=== PATIENT | male | born 1960 | race Caucasian/White ===

== ENCOUNTER → 2017-11-04 | Outpatient (CLI) | payer BC ==
[2017-11-04 16:33] LABS: CKMB 2.5 ng/ml (0.5-3.6); LDH 213 U/L (87-241)
[2017-11-04 16:34] LABS: TROPONIN I < 0.015 ng/ml (<0.045)
== END | disposition home or self-care (01) ==
LOC: LAB 16:01
PROVIDERS: Family Medicine
DX: R23.3 Spontaneous ecchymoses (principal); S16.1XXA Strain of muscle, fascia and tendon at neck level, initial encounter; X58.XXXA Exposure to other specified factors, initial encounter; Y93.89 Activity, other specified; Y92.89 Other specified places as the place of occurrence of the external cause; Y99.8 Other external cause status

== ENCOUNTER → 2020-08-30 | Outpatient (CLI) | payer BC | END | disposition home or self-care (01) | LOC: COVID19 09:48 | PROVIDERS: ATTEND Family Medicine | DX: U07.1 COVID-19 (principal) ==

== ENCOUNTER 2022-07-20 17:00 | Emergency (ER) | payer BC ==
[2022-07-20] MEDS ORDERED: VALSARTAN-HCTZ1 EAC3 PO (17:10)
[2022-07-20] MEDS ORDERED: ROSUVASTATIN CAL5 MG PO (17:10)
[2022-07-20 17:33] LABS: BASO % 0.5 % (0.0-1.0); EOS # 0.1 10*3/uL (0.0-0.4); EOS % 0.9 % (1.0-4.0); HEMATOCRIT 38.8 % (42.0-52.0); LYMPH # 1.2 10*3/uL (1.3-4.4); LYMPH % 14.8 % (27.0-41.0); MEAN CORPUSCULAR HGB 27.1 pg (27.0-31.0); MEAN CORPUSCULAR HGB CONC 32.2 g/dl (33.0-37.0); MEAN PLATELET VOLUME 9.3 fl (9.6-12.3); MONO # 0.8 10*3/uL (0.1-1.0); MONO % 10.8 % (3.0-9.0); NEUT # 5.6 10*3/uL (2.3-7.9); NEUT % 72.5 % (47.0-73.0); PLATELET COUNT AUTOMATED 357 10*3/uL (130-400); RED BLOOD COUNT 4.62 10*6/uL (4.50-5.90); RED CELL DISTRI WIDTH 19.6 % (0-14.5); WHITE BLOOD COUNT 7.8 10*3/uL (4.8-10.8)
[2022-07-20 17:48] LABS: ALKALINE PHOSPHATASE 470 U/L (46-116); BUN 21 mg/dl (9-23); CHLORIDE 98 mmol/L (98-107); CREATININE 0.74 mg/dL (0.70-1.30); POTASSIUM 3.4 mmol/L (3.4-5.1); SGPT/ALT 38 U/L (10-49); SODIUM 134 mmol/L (136-145)
== END 2022-07-20 17:59 | disposition home or self-care (01) ==
LOC: ED 17:00
PROVIDERS: Student in an Organized Health Care Education/Training Program
DX: E11.649 Type 2 diabetes mellitus with hypoglycemia without coma (principal)

== ENCOUNTER → 2023-02-22 | Outpatient (CLI) | payer BC ==
[~2023-02-22] MED LIST: ROSUVASTATIN CAL5 MG PO; VALSARTAN-HCTZ1 EAC3 PO
== END | disposition home or self-care (01) ==
LOC: WOUNDCARE 00:54
PROVIDERS: ATTEND Nurse Practitioner Family
DX: L03.115 Cellulitis of right lower limb (principal); I10 Essential (primary) hypertension; E78.49 Other hyperlipidemia; Z86.718 Personal history of other venous thrombosis and embolism; Z89.512 Acquired absence of left leg below knee; Z79.4 Long term (current) use of insulin

== ENCOUNTER 2024-05-13 07:42 | Emergency (ER) | payer BC ==
[~2024-05-13] VITALS: Ht 187.9 cm; Wt 83.9 kg
[2024-05-13] MEDS ORDERED: FUROSEMIDE40 MG PO (07:55)
[2024-05-13] MEDS ORDERED: GABAPENTIN100 M2 PO (07:56)
[2024-05-13] MEDS ORDERED: ELIQUIS2.5 M1 PO (07:56)
[2024-05-13] MEDS ORDERED: VITAMIN C500 M4 PO (07:57)
[2024-05-13] MEDS ORDERED: SODIUM CHLORI1000 M5 PO (07:57)
[2024-05-13] MEDS ORDERED: Tdap Vaccine 0.5 ML SYR (Adult Vaccine) IM ONE (08:20)
[2024-05-13] MEDS ORDERED: CEPHALEXIN500 M1 PO (09:42)
== END 2024-05-13 10:12 | disposition home or self-care (01) ==
LOC: ED 07:42
DX: S81.819A Laceration without foreign body, unspecified lower leg, initial encounter (principal); S09.8XXA Other specified injuries of head, initial encounter; W07.XXXA Fall from chair, initial encounter; Y93.89 Activity, other specified; Y92.89 Other specified places as the place of occurrence of the external cause; Y99.8 Other external cause status

== ENCOUNTER 2024-05-20 13:33 | Inpatient (IN) | payer BC, MEDICARE ==
[~2024-05-20] VITALS: Ht 182.8 cm; Wt 104.9 kg
[2024-05-20] VITALS (12 sets, daily range): BP systolic 76–137; BP diastolic 30–108
[~2024-05-20 13:33] MED LIST changes: +CEPHALEXIN500 M1 PO; +ELIQUIS2.5 M1 PO; +FUROSEMIDE40 MG PO; +GABAPENTIN100 M2 PO; +SODIUM CHLORI1000 M5 PO; +VITAMIN C500 M4 PO
[2024-05-20 14:57] LABS: HEMATOCRIT 21.2 % (42.0-52.0); MANUAL DIFF REFLEX YES; MEAN CELL VOLUME 85.5 fl (80.0-94.0); MEAN CORPUSCULAR HGB 29.8 pg (27.0-31.0); MEAN CORPUSCULAR HGB CONC 34.9 g/dl (33.0-37.0); MEAN PLATELET VOLUME 10.3 fl (9.6-12.3); PLATELET COUNT AUTOMATED 310 10*3/uL (130-400); RED BLOOD COUNT 2.48 10*6/uL (4.50-5.90); RED CELL DISTRI WIDTH 21.5 % (0-14.5); WHITE BLOOD COUNT 18.4 10*3/uL (4.8-10.8)
[2024-05-20 15:14] LABS: ALKALINE PHOSPHATASE 330 U/L (46-116); BUN 23 mg/dl (9-23); CHLORIDE 77 mmol/L (98-107); POTASSIUM 3.4 mmol/L (3.4-5.1); SGPT/ALT 60 U/L (5-49); TOTAL PROTEIN 3.7 gm/dL (6.0-8.0)
[2024-05-20 15:31] LABS: PLATELET SUFFICIENCY NORMAL (NORMAL); TOTAL CELLS COUNTED 100 #CELLS
[2024-05-20 15:32] LABS: TARGET CELLS FEW
[2024-05-20] MEDS ORDERED: Thiamine 200 MG/2 ML VIAL IV ONE (16:10)
[2024-05-20] MEDS ORDERED: MORPHINE Sulfate 2 MG/ML SYR IV ONE (16:10)
[2024-05-20] MEDS ORDERED: Lactated Ringer's Solution 1,000 ML IV SCH ×5 (17:05→22:30)
[2024-05-20] MEDS ORDERED: Vancomycin Hydrochloride 1,000 MG in SODIUM CHLORIDE 0.9% 250 ML IV ONE (17:15)
[2024-05-20] MEDS ORDERED: CEFEPIME HYDROCHLORIDE IV ONE (17:15)
[2024-05-20] MEDS ORDERED: Vancomycin Hydrochloride 250 ML IV ONE (17:45)
[2024-05-20] MEDS ORDERED: LORazepam 1 MG TAB PO SCH (18:00)
[2024-05-20] MEDS ORDERED: Ondansetron Hydrochloride 4 MG/2 ML VIAL IV PRN (18:05)
[2024-05-20] MEDS ORDERED: Water, Sterile 10 ML VIAL IV PRN (18:10)
[2024-05-20] MEDS ORDERED: LORazepam 2 MG/ML VIAL IV PRN (18:10)
[2024-05-20] MEDS ORDERED: Vancomycin Hydrochloride 1,000 MG in SODIUM CHLORIDE 0.9% 250 ML IV SCH (18:30)
[2024-05-20] MEDS ORDERED: Menthol/Zinc Oxide 4 GM THIN T SCH (18:40)
[2024-05-20] MEDS ORDERED: DEXTROSE 10 % IN WATER 250 ML IV PRN (18:45)
[2024-05-20] MEDS ORDERED: MAGNESIUM SULFATE 100 ML IV ONE (18:50)
[2024-05-20] MEDS ORDERED: Piperacillin Sodium/Tazobact 50 ML IV SCH (19:00)
[2024-05-20] MEDS ORDERED: POTASSIUM CL/0.9% SODIUM CL 1,000 ML IV SCH (19:15)
[2024-05-20] MEDS ORDERED: NOREPINEPHRINE BITARTRATE/D5W 250 ML IV SCH (21:20)
[2024-05-20] MEDS ORDERED: APIXABAN 5 MG TAB PO SCH (22:00)
[2024-05-20] MEDS ORDERED: NYSTATIN 15 GM BOT T SCH (22:00)
[2024-05-20] MEDS ORDERED: INSULIN LISPRO 1 UNIT/0.01 ML SQ SCH (22:00)
[2024-05-20] MEDS ORDERED: HEPARIN SODIUM 5,000 UNIT/ML VIAL SC SCH (22:00)
[2024-05-20] MEDS ORDERED: TAMSULOSIN HCL0.4 MG PO (22:02)
[2024-05-20 22:25] LABS: POTASSIUM 3.5 mmol/L (3.4-5.1)
[2024-05-20] MEDS ORDERED: SODIUM CHLORIDE 0.9% 1,000 ML IV SCH (22:35)
[2024-05-21] VITALS (97 sets, daily range): BP systolic 82–126; BP diastolic 30–67
[2024-05-21 00:18] LABS: BILIRUBIN 1+ (Negative); BLOOD Negative (Negative); CLARITY Cloudy (Clear); COLOR Dark Yellow (Yellow); GLUCOSE Negative (Negative); KETONE Negative (Negative); LEUKO ESTERASE Trace (Negative); NITRITE Negative (Negative); SPECIFIC GRAVITY 1.015 (1.001-1.030)
[2024-05-21 01:11] LABS: BACTERIA TRACE; WBC 16-20 wbc/hpf (0-5)
[2024-05-21 02:25] LABS: POTASSIUM 3.3 mmol/L (3.4-5.1)
[2024-05-21] MEDS ORDERED: POTASSIUM CHLORIDE 20 MEQ TAB PO ONE (02:45)
[2024-05-21] MEDS ORDERED: Vancomycin Hydrochloride 1,000 MG in SODIUM CHLORIDE 0.9% 250 ML IV SCH (06:00)
[2024-05-21 06:36] LABS: BASO % 0.1 % (0.0-1.0); EOS % 0.2 % (1.0-4.0); LYMPH # 1.1 10*3/uL (1.3-4.4); LYMPH % 6.9 % (27.0-41.0); MEAN CELL VOLUME 84.7 fl (80.0-94.0); MEAN CORPUSCULAR HGB 29.8 pg (27.0-31.0); MEAN CORPUSCULAR HGB CONC 35.2 g/dl (33.0-37.0); MEAN PLATELET VOLUME 10.7 fl (9.6-12.3); MONO # 0.8 10*3/uL (0.1-1.0); MONO % 5.1 % (3.0-9.0); NEUT # 14.3 10*3/uL (2.3-7.9); NEUT % 87.3 % (47.0-73.0); NUCLEATED RED BLOOD CELL 0.1 % (0.0-0.0); PLATELET COUNT AUTOMATED 300 10*3/uL (130-400); RED BLOOD COUNT 2.35 10*6/uL (4.50-5.90); RED CELL DISTRI WIDTH 22.6 % (0-14.5); WHITE BLOOD COUNT 16.4 10*3/uL (4.8-10.8)
[2024-05-21 06:39] LABS: HEMATOCRIT 19.9 % (42.0-52.0)
[2024-05-21 07:02] LABS: POTASSIUM 3.2 mmol/L (3.4-5.1); TOTAL PROTEIN 3.5 gm/dL (6.0-8.0)
[2024-05-21] MEDS ORDERED: Gelatin Sponge 1 EACH SPON T ONE (09:40)
[2024-05-21] MEDS ORDERED: FOLIC ACID 0.4 MG TAB PO SCH (10:00)
[2024-05-21] MEDS ORDERED: Menthol/Zinc Oxide 4 GM THIN T SCH (10:00)
[2024-05-21] MEDS ORDERED: FOLIC ACID 50 MG/10 ML VIAL IV SCH (10:00)
[2024-05-21] MEDS ORDERED: Thiamine 100 MG TAB PO SCH (10:00)
[2024-05-21] MEDS ORDERED: MULTIVITAMIN 1 TAB TAB PO SCH (10:00)
[2024-05-21 10:09] LABS: POTASSIUM 3.5 mmol/L (3.4-5.1)
[2024-05-21] MEDS ORDERED: ALGINATE DRESSING/CME-CELL 4X4 1 EACH BANDAGE T ONE (10:12)
[2024-05-21] MEDS ORDERED: SODIUM CHLORIDE 0.9% 500 ML IV ONE (11:57)
[2024-05-21] MEDS ORDERED: SODIUM CHLORIDE 0.9% IV SCH (12:00)
[2024-05-21] MEDS ORDERED: FOLIC ACID IV SCH (12:00)
[2024-05-21] MEDS ORDERED: SODIUM CHLORIDE 0.9% 1,000 ML IV ONE (12:45)
[2024-05-21] MEDS ORDERED: Thiamine 200 MG/2 ML VIAL IV SCH (14:00)
[2024-05-21 14:25] LABS: POTASSIUM 3.4 mmol/L (3.4-5.1)
[2024-05-21] MEDS ORDERED: HEEL PROTECTOR DEVICE ONE (18:24)
[2024-05-21 18:35] LABS: POTASSIUM 3.5 mmol/L (3.4-5.1)
[2024-05-21] MEDS ORDERED: LORazepam 1 MG TAB PO SCH (20:00)
[2024-05-21 22:26] LABS: BASO % 0.1 % (0.0-1.0); EOS # 0.1 10*3/uL (0.0-0.4); LYMPH % 6.9 % (27.0-41.0); MEAN CELL VOLUME 85.3 fl (80.0-94.0); MEAN CORPUSCULAR HGB 29.1 pg (27.0-31.0); MEAN CORPUSCULAR HGB CONC 34.1 g/dl (33.0-37.0); MEAN PLATELET VOLUME 10.2 fl (9.6-12.3); MONO # 0.9 10*3/uL (0.1-1.0); MONO % 6.3 % (3.0-9.0); NEUT # 12.5 10*3/uL (2.3-7.9); NEUT % 85.3 % (47.0-73.0); NUCLEATED RED BLOOD CELL 0.2 % (0.0-0.0); PLATELET COUNT AUTOMATED 286 10*3/uL (130-400); RED BLOOD COUNT 2.58 10*6/uL (4.50-5.90); RED CELL DISTRI WIDTH 22.9 % (0-14.5); WHITE BLOOD COUNT 14.6 10*3/uL (4.8-10.8)
[2024-05-21 22:59] LABS: POTASSIUM 3.5 mmol/L (3.4-5.1); TOTAL PROTEIN 3.3 gm/dL (6.0-8.0)
[2024-05-22] VITALS (72 sets, daily range): BP systolic 75–113; BP diastolic 27–67
[2024-05-22 05:07] LABS: HBSAG Negative (Negative); HEP B CORE AB, IGM Negative (Negative); HEPATITIS C ANTIBODY Non Reactive (Non Reactive)
[2024-05-22 06:26] LABS: BASO % 0.1 % (0.0-1.0); EOS # 0.1 10*3/uL (0.0-0.4); EOS % 0.9 % (1.0-4.0); HEMATOCRIT 21.7 % (42.0-52.0); LYMPH # 0.7 10*3/uL (1.3-4.4); LYMPH % 5.4 % (27.0-41.0); MEAN CELL VOLUME 86.1 fl (80.0-94.0); MEAN CORPUSCULAR HGB CONC 33.6 g/dl (33.0-37.0); MEAN PLATELET VOLUME 10.9 fl (9.6-12.3); MONO # 0.7 10*3/uL (0.1-1.0); MONO % 5.4 % (3.0-9.0); NEUT # 11.6 10*3/uL (2.3-7.9); NEUT % 87.4 % (47.0-73.0); PLATELET COUNT AUTOMATED 291 10*3/uL (130-400); RED BLOOD COUNT 2.52 10*6/uL (4.50-5.90); RED CELL DISTRI WIDTH 23.6 % (0-14.5); WHITE BLOOD COUNT 13.2 10*3/uL (4.8-10.8)
[2024-05-22 08:10] LABS: POTASSIUM 3.4 mmol/L (3.4-5.1); TOTAL PROTEIN 3.2 gm/dL (6.0-8.0)
[2024-05-22] MEDS ORDERED: FOLIC ACID 50 MG/10 ML VIAL IV SCH (10:00)
[2024-05-22] MEDS ORDERED: LACTULOSE 20 GM/30 ML UDC PO SCH (10:00)
[2024-05-22] MEDS ORDERED: VANCOMYCIN/WATER FOR INJ (PEG) 250 ML IV SCH (10:00)
[2024-05-22] MEDS ORDERED: ALBUMIN 25% 100 ML IV ONE (12:05)
[2024-05-22] MEDS ORDERED: POTASSIUM CHLORIDE 20 MEQ in Lactated Ringer's Solution 1,000 ML IV SCH (13:00)
[2024-05-22 16:14] LABS: BILIRUBIN 2+ (Negative); BLOOD 2+ (Negative); CLARITY Cloudy (Clear); COLOR Dark Yellow (Yellow); GLUCOSE Negative (Negative); KETONE Trace (Negative); LEUKO ESTERASE 1+ (Negative); NITRITE Negative (Negative); SPECIFIC GRAVITY 1.025 (1.001-1.030)
[2024-05-22 16:16] LABS: URINE CREATININE RANDOM 104.37 mg/dL
[2024-05-22 16:17] LABS: URINE CHLORIDE, RANDOM < 20 mmol/L
[2024-05-22 16:21] LABS: BACTERIA 1+; RBC 21-30 rbc/hpf (0-2)
[2024-05-22 16:25] LABS: CALCIUM OXALATE CRYSTALS Trace; HYALINE CAST 0-2
[2024-05-22] MEDS ORDERED: ATORVASTATIN CALCIUM 20 MG TAB PO SCH (22:00)
[2024-05-22] MEDS ORDERED: LORazepam 1 MG TAB PO PRN (22:00)
[2024-05-22] MEDS ORDERED: APIXABAN 5 MG TAB PO SCH (22:00)
[2024-05-22] MEDS ORDERED: GABAPENTIN 100 MG CAP PO SCH (22:00)
[2024-05-23] VITALS (46 sets, daily range): BP systolic 76–149; BP diastolic 25–84
[2024-05-23 05:16] LABS: POTASSIUM 3.7 mmol/L (3.4-5.1); TOTAL PROTEIN 3.5 gm/dL (6.0-8.0)
[2024-05-23] MEDS ORDERED: Protector, Heel/Elbow (PAIR) DEVICE ONE (06:04)
[2024-05-23] MEDS ORDERED: HEEL PROTECTOR DEVICE ONE (06:04)
[2024-05-23 06:06] LABS: BASO % 0.1 % (0.0-1.0); EOS # 0.2 10*3/uL (0.0-0.4); EOS % 1.3 % (1.0-4.0); HEMATOCRIT 21.9 % (42.0-52.0); LYMPH # 0.8 10*3/uL (1.3-4.4); LYMPH % 4.9 % (27.0-41.0); MEAN CORPUSCULAR HGB 29.3 pg (27.0-31.0); MEAN CORPUSCULAR HGB CONC 32.4 g/dl (33.0-37.0); MEAN PLATELET VOLUME 10.2 fl (9.6-12.3); NEUT # 14.8 10*3/uL (2.3-7.9); NEUT % 86.6 % (47.0-73.0); NUCLEATED RED BLOOD CELL 0.1 % (0.0-0.0); PLATELET COUNT AUTOMATED 295 10*3/uL (130-400); RED BLOOD COUNT 2.42 10*6/uL (4.50-5.90); WHITE BLOOD COUNT 17.1 10*3/uL (4.8-10.8)
[2024-05-23 06:44] LABS: MEAN CELL VOLUME 90.5 fl (80.0-94.0)
[2024-05-23] MEDS ORDERED: POTASSIUM CHLORIDE 20 MEQ in Lactated Ringer's Solution 1,000 ML IV SCH (08:00)
[2024-05-23] MEDS ORDERED: Tamsulosin Hydrochloride 0.4 MG CAP PO SCH (10:00)
[2024-05-24] VITALS (34 sets, daily range): BP systolic 89–117; BP diastolic 44–61
[2024-05-24] MEDS ORDERED: SODIUM CHLORIDE 0.9% 500 ML IV ONE (01:46)
[2024-05-24 05:14] LABS: POTASSIUM 3.2 mmol/L (3.4-5.1); TOTAL PROTEIN 3.5 gm/dL (6.0-8.0)
[2024-05-24 06:03] LABS: BASO % 0.1 % (0.0-1.0); EOS # 0.2 10*3/uL (0.0-0.4); EOS % 1.7 % (1.0-4.0); HEMATOCRIT 23.9 % (42.0-52.0); LYMPH # 0.8 10*3/uL (1.3-4.4); LYMPH % 5.3 % (27.0-41.0); MEAN CELL VOLUME 89.5 fl (80.0-94.0); MEAN CORPUSCULAR HGB 28.8 pg (27.0-31.0); MEAN CORPUSCULAR HGB CONC 32.2 g/dl (33.0-37.0); MEAN PLATELET VOLUME 9.9 fl (9.6-12.3); MONO # 1.4 10*3/uL (0.1-1.0); NEUT # 11.6 10*3/uL (2.3-7.9); NEUT % 81.6 % (47.0-73.0); PLATELET COUNT AUTOMATED 239 10*3/uL (130-400); RED BLOOD COUNT 2.67 10*6/uL (4.50-5.90); RED CELL DISTRI WIDTH 21.5 % (0-14.5); WHITE BLOOD COUNT 14.3 10*3/uL (4.8-10.8)
[2024-05-24] MEDS ORDERED: VANCOMYCIN/WATER FOR INJ (PEG) 300 ML IV SCH (16:00)
[2024-05-24 16:54] LABS: BASO % 0.1 % (0.0-1.0); EOS # 0.3 10*3/uL (0.0-0.4); EOS % 2.9 % (1.0-4.0); HEMATOCRIT 22.7 % (42.0-52.0); LYMPH # 0.7 10*3/uL (1.3-4.4); LYMPH % 5.9 % (27.0-41.0); MEAN CELL VOLUME 89.7 fl (80.0-94.0); MEAN CORPUSCULAR HGB CONC 33.5 g/dl (33.0-37.0); MEAN PLATELET VOLUME 9.9 fl (9.6-12.3); MONO # 1.1 10*3/uL (0.1-1.0); MONO % 9.1 % (3.0-9.0); NEUT # 9.2 10*3/uL (2.3-7.9); PLATELET COUNT AUTOMATED 209 10*3/uL (130-400); RED BLOOD COUNT 2.53 10*6/uL (4.50-5.90); RED CELL DISTRI WIDTH 21.3 % (0-14.5); WHITE BLOOD COUNT 11.6 10*3/uL (4.8-10.8)
[2024-05-24] MEDS ORDERED: POTASSIUM CHLORIDE IV ONE (18:00)
[2024-05-24] MEDS ORDERED: LACTATED RINGER S IV ONE (18:00)
[2024-05-25] VITALS: BP 115/64
[2024-05-25] MEDS ORDERED: LACTATED RINGER S IV ONE (05:00)
[2024-05-25] MEDS ORDERED: POTASSIUM CHLORIDE IV ONE (05:00)
[2024-05-25 06:11] LABS: HEMATOCRIT 22.6 % (42.0-52.0); MEAN CELL VOLUME 88.3 fl (80.0-94.0); MEAN CORPUSCULAR HGB 30.1 pg (27.0-31.0); MEAN CORPUSCULAR HGB CONC 34.1 g/dl (33.0-37.0); MEAN PLATELET VOLUME 10.3 fl (9.6-12.3); PLATELET COUNT AUTOMATED 239 10*3/uL (130-400); RED BLOOD COUNT 2.56 10*6/uL (4.50-5.90); RED CELL DISTRI WIDTH 21.9 % (0-14.5); WHITE BLOOD COUNT 12.9 10*3/uL (4.8-10.8)
[2024-05-25 06:15] LABS: MANUAL DIFF REFLEX YES
[2024-05-25 06:48] LABS: TOTAL CELLS COUNTED 100 #CELLS
[2024-05-25 06:49] LABS: BURR CELLS FEW; OVALOCYTES FEW; PLATELET SUFFICIENCY NORMAL (NORMAL); POLYCHROMASIA SLIGHT; POTASSIUM 3.1 mmol/L (3.4-5.1); TARGET CELLS FEW; TOTAL PROTEIN 3.7 gm/dL (6.0-8.0); TOXIC GRANULATION SLIGHT
[2024-05-25 08:00] VITALS: BP 101/61
[2024-05-25] MEDS ORDERED: SINCALIDE 5 MCG VIAL IV SCH (08:15)
[2024-05-25] MEDS ORDERED: Technetium Tc 99M Mebrofenin 1 KIT KIT IV SCH (08:15)
[2024-05-25] MEDS ORDERED: LACTULOSE 20 GM/30 ML UDC PO SCH (10:00)
[2024-05-25] MEDS ORDERED: SODIUM CHLORIDE PO SCH (10:00)
[2024-05-25] MEDS ORDERED: FOLIC ACID 0.4 MG TAB PO SCH (10:09)
[2024-05-25 12:00] VITALS: BP 98/51
[2024-05-25] MEDS ORDERED: POTASSIUM CHLORIDE 40 MEQ in Lactated Ringer's Solution 1,000 ML IV SCH (13:25)
[2024-05-25 16:00] VITALS: BP 91/47
[2024-05-25 22:00] VITALS: BP 105/60
[2024-05-26] VITALS: BP 100/63
[2024-05-26 05:43] LABS: POTASSIUM 3.7 mmol/L (3.4-5.1)
[2024-05-26 06:00] VITALS: BP 107/47
[2024-05-26 06:15] LABS: MEAN CELL VOLUME 90.3 fl (80.0-94.0); MEAN CORPUSCULAR HGB 30.3 pg (27.0-31.0); MEAN CORPUSCULAR HGB CONC 33.6 g/dl (33.0-37.0); MEAN PLATELET VOLUME 10.6 fl (9.6-12.3); NUCLEATED RED BLOOD CELL 0.2 % (0.0-0.0); PLATELET COUNT AUTOMATED 276 10*3/uL (130-400); RED BLOOD COUNT 2.77 10*6/uL (4.50-5.90); RED CELL DISTRI WIDTH 22.5 % (0-14.5); WHITE BLOOD COUNT 10.6 10*3/uL (4.8-10.8)
[2024-05-26 06:17] LABS: MANUAL DIFF REFLEX YES
[2024-05-26 07:03] LABS: ATYPICAL LYMPHS 1 % (0-0); OVALOCYTES FEW; POLYCHROMASIA SLIGHT; SCHISTOCYTES FEW; TARGET CELLS FEW; TOTAL CELLS COUNTED 100 #CELLS; TOXIC GRANULATION SLIGHT
[2024-05-26 07:04] LABS: BURR CELLS FEW; PLATELET SUFFICIENCY NORMAL (NORMAL)
[2024-05-26 07:58] LABS: POTASSIUM 3.5 mmol/L (3.4-5.1)
[2024-05-26 08:00] VITALS: BP 95/53
[2024-05-26] MEDS ORDERED: LACTULOSE 20 GM/30 ML UDC PO SCH (10:00)
[2024-05-26 11:54] VITALS: BP 92/48
[2024-05-26] MEDS ORDERED: ALGINATE DRESSING/CME-CELL 4X4 1 EACH BANDAGE T ONE ×2 (13:28→13:29)
[2024-05-26] MEDS ORDERED: FOAM BANDAGE 5X5 T ONE ×2 (13:30→18:15)
[2024-05-26] MEDS ORDERED: FOAM BANDAGE HEEL T ONE (13:30)
[2024-05-26 16:00] VITALS: BP 96/55
[2024-05-26] MEDS ORDERED: Insulin Glargine, Recombinan 1 UNIT/0.01 ML SC SCH (22:00)
== END 2024-05-26 18:45 | disposition short-term general hospital (02) | DRG 871 ==
LOC: ED 13:33 → ICCU 17:57 → EDHOLD 17:57 → ICCU 19:05
PROVIDERS: Emergency Medicine; Internal Medicine; Internal Medicine Nephrology; Student in an Organized Health Care Education/Training Program; ADMIT Family Medicine; ATTEND Family Medicine
PROC: 02HV33Z Insertion of Infusion Device into Superior Vena Cava, Percutaneous Approach (ICD-10-PCS; principal; 2024-05-20)
PROC: B548ZZA Ultrasonography of Superior Vena Cava, Guidance (ICD-10-PCS; 2024-05-20)
PROC: 30233N1 Transfusion of Nonautologous Red Blood Cells into Peripheral Vein, Percutaneous Approach (ICD-10-PCS; 2024-05-21)
DX: A41.9 Sepsis, unspecified organism (principal); E43 Unspecified severe protein-calorie malnutrition; J18.9 Pneumonia, unspecified organism; N17.0 Acute kidney failure with tubular necrosis; R65.21 Severe sepsis with septic shock; E87.1 Hypo-osmolality and hyponatremia; F33.9 Major depressive disorder, recurrent, unspecified; J21.0 Acute bronchiolitis due to respiratory syncytial virus; L03.114 Cellulitis of left upper limb; L03.113 Cellulitis of right upper limb; E83.42 Hypomagnesemia; E86.0 Dehydration; E87.8 Other disorders of electrolyte and fluid balance, not elsewhere classified; R74.01 Elevation of levels of liver transaminase levels; R79.82 Elevated C-reactive protein (CRP); D64.9 Anemia, unspecified; Z68.23 Body mass index [BMI] 23.0-23.9, adult; N40.0 Benign prostatic hyperplasia without lower urinary tract symptoms; I10 Essential (primary) hypertension; E78.2 Mixed hyperlipidemia; E11.65 Type 2 diabetes mellitus with hyperglycemia; I48.91 Unspecified atrial fibrillation; G30.9 Alzheimer's disease, unspecified; F02.C0 Dementia in other diseases classified elsewhere, severe, without behavioral disturbance, psychotic disturbance, mood disturbance, and anxiety; F10.10 Alcohol abuse, uncomplicated; K52.9 Noninfective gastroenteritis and colitis, unspecified; K70.31 Alcoholic cirrhosis of liver with ascites; R16.0 Hepatomegaly, not elsewhere classified; K76.0 Fatty (change of) liver, not elsewhere classified; Y90.9 Presence of alcohol in blood, level not specified; B96.4 Proteus (mirabilis) (morganii) as the cause of diseases classified elsewhere; E11.42 Type 2 diabetes mellitus with diabetic polyneuropathy; I48.0 Paroxysmal atrial fibrillation; Z79.4 Long term (current) use of insulin; Z79.899 Other long term (current) drug therapy; I95.9 Hypotension, unspecified; S50.812A Abrasion of left forearm, initial encounter; S51.012A Laceration without foreign body of left elbow, initial encounter; E11.621 Type 2 diabetes mellitus with foot ulcer; S91.311A Laceration without foreign body, right foot, initial encounter; S30.1XXA Contusion of abdominal wall, initial encounter; S31.829A Unspecified open wound of left buttock, initial encounter; X58.XXXA Exposure to other specified factors, initial encounter; Y93.89 Activity, other specified; Y92.89 Other specified places as the place of occurrence of the external cause; Y99.8 Other external cause status